=== PATIENT | male | born 1975 | race Caucasian/White ===

== ENCOUNTER → 2018-01-10 | Day surgery (SDC) | payer OTHER ==
[~2018-01-10] MED LIST: BUPIVACAINE HCL 0.5 % INJ/PF 30 ML SDV ONE; METHYLPREDNISOLONE ACETATE INJ 40 MG/1 ML ML ONE
--- NOTE | 2018-01-10 15:22 | RADIOLOGY REPORT (SQ) ---
EXAM DESCRIPTION: FLUORO/NEEDLE PLACEMENT; INJECT/ASPIR HIP/SHLDR/KNEE COMPLETED DATE/TIME: 01/10/2018 2:34 pm REASON FOR STUDY: CIRCUMFERENTIAL LABRAL TEAR LEFT SHOULDER COMPARISON: None. FLUOROSCOPY TIME: 10 seconds 1 digital C-arm images saved to PACS. LIMITATIONS: None. PROCEDURE: SITE OF INJECTION: Posterior left glenohumeral joint LOCALIZING CONTRAST TYPE AND DOSE: 1 mL of Isovue-300 was injected to confirm intra-articular needle placement MEDICATION TYPE AND DOSE: 80 mg of Depo-Medrol. 5 mL of 0.5% bupivacaine Using local anesthesia and sterile technique with fluoroscopic guidance, a 22 gauge spinal needle was advanced into the joint. Iodinated contrast was injected to verify intraarticular placement. This w as followed by therapeutic injection of the indicated medications. The needle was removed. There we re no immediate complications. Preprocedure pain level: 2/10. Postprocedure pain level: 0/10. IMPRESSION: THERAPEUTIC INJECTION OF THE LEFT SHOULDER JOINT ABOVE. COMMENT: Patient medication list reviewed: Yes- Quality ID# [id number]:Eligible professional attests to doc umenting in the medical record they obtained, updated, or reviewed the patient's current medications. . Quality ID 145: Final reports for procedures using fluoroscopy that document radiation exposure john quentin, or exposure time and number of fluorographic images (if radiation exposure indices are not avail able) TECHNICAL DOCUMENTATION: JOB ID: [id number] [employer]- All Rights Reserved Reading location - IP/workstation name: [email or web address]
--- NOTE | 2018-01-10 15:22 | RADIOLOGY REPORT (SQ) ---
EXAM DESCRIPTION: FLUORO/NEEDLE PLACEMENT; INJECT/ASPIR HIP/SHLDR/KNEE COMPLETED DATE/TIME: 01/10/2018 2:34 pm REASON FOR STUDY: CIRCUMFERENTIAL LABRAL TEAR LEFT SHOULDER COMPARISON: None. FLUOROSCOPY TIME: 10 seconds 1 digital C-arm images saved to PACS. LIMITATIONS: None. PROCEDURE: SITE OF INJECTION: Posterior left glenohumeral joint LOCALIZING CONTRAST TYPE AND DOSE: 1 mL of Isovue-300 was injected to confirm intra-articular needle placement MEDICATION TYPE AND DOSE: 80 mg of Depo-Medrol. 5 mL of 0.5% bupivacaine Using local anesthesia and sterile technique with fluoroscopic guidance, a 22 gauge spinal needle was advanced into the joint. Iodinated contrast was injected to verify intraarticular placement. This w as followed by therapeutic injection of the indicated medications. The needle was removed. There we re no immediate complications. Preprocedure pain level: 2/10. Postprocedure pain level: 0/10. IMPRESSION: THERAPEUTIC INJECTION OF THE LEFT SHOULDER JOINT ABOVE. COMMENT: Patient medication list reviewed: Yes- Quality ID# [id number]:Eligible professional attests to doc umenting in the medical record they obtained, updated, or reviewed the patient's current medications. . Quality ID 145: Final reports for procedures using fluoroscopy that document radiation exposure john quentin, or exposure time and number of fluorographic images (if radiation exposure indices are not avail able) TECHNICAL DOCUMENTATION: JOB ID: [id number] [employer]- All Rights Reserved Reading location - IP/workstation name: [email or web address]
== END ==
LOC: RAD 01-05 15:27
PROVIDERS: ATTEND Family Medicine
DX: S43.492A Other sprain of left shoulder joint, initial encounter (principal); X58.XXXA Exposure to other specified factors, initial encounter
CPT/HCPCS: 20610; 77002; J3490; J1020 ×2